=== PATIENT | female | born 1950 ===

== ENCOUNTER 2023-04-13 15:40 | Emergency (ER) | payer MEDICARE, MEDICAID ==
[2023-04-13] MEDS ORDERED: Ketorolac 30 MG/ML SDV IM ONE (16:12)
== END 2023-04-13 16:19 | disposition home or self-care (01) ==
LOC: DL.ED 15:40
DX: S69.91XA Unspecified injury of right wrist, hand and finger(s), initial encounter (principal); W01.0XXA Fall on same level from slipping, tripping and stumbling without subsequent striking against object, initial encounter
CPT/HCPCS: 73100; 96372; 99283; J1885; 99282